=== PATIENT | male | born 2000 | race Caucasian/White ===

== ENCOUNTER 2023-05-13 21:13 | Emergency (ER) | payer OTHER ==
[~2023-05-13] VITALS: Ht 175.3 cm; Wt 76.0 kg
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
--- OUTSIDE RECORDS SUMMARY | ~2023-05-13 | XMS | Continuity of Care Document ---
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 Results/Labs No information. Social History No information. Vital Signs No information."
[~2023-05-13 21:13] MED LIST: MELATONIN5 M2 PO; MINIPRESS2 MG PO; PAXIL20 MG PO; TRAMADOL HCL50 MG PO
[2023-05-13] MEDS ORDERED: CETIRIZINE HCL10 MG PO (22:28)
[2023-05-13 22:57] VITALS: BP 122/70
== END 2023-05-13 22:57 | disposition home or self-care (01) ==
LOC: ED 21:13
DX: S01.81XA Laceration without foreign body of other part of head, initial encounter (principal); X58.XXXA Exposure to other specified factors, initial encounter; F32.A Depression, unspecified; Z79.899 Other long term (current) drug therapy; Z23 Encounter for immunization
CPT/HCPCS: 12002; 90471; 90715; 99282-25